=== PATIENT | female | born 1970 | race Caucasian/White ===

== ENCOUNTER 2016-12-07 10:19 | Observation (INO) ==
--- NOTE | 2016-12-07 12:03 | Emergency Department Note ---
START Narrative - START START: I did see the patient spoke with her and examine her. Does have left leg pain and swelling for the last 4 days and Doppler will be done to evaluate further for deep vein thrombosis. Additionally she does have some dyspnea and chest pain and a d-dimer will be done to look for pulmonary embolism as well as chest x-ray. EKG will be done also. I examined this patient and my medical decision-making was reviewed with the WASH PLANT OPERATOR/PA/Advanced Practice Nurse/Resident Physician. I agree with the documented findings, disposition and treatment plan as described except to the extent set forth below. 120
--- NOTE | 2016-12-07 12:37 | Emergency Department Note ---
Disposition Clinical Impression: Pulmonary embolism Qualifiers: Pulmonary embolism type: other Chronicity: acute Acute cor pulmonale presence: without acute cor pulmonale Qualified Code(s): I26.99 - Other pulmonary embolism without acute cor pulmonale Disposition: Admitted As Inpatient Condition: Fair Extremity Problem HPI - General Chief complaint: ED Extremity Problem,Nontraumatic Stated complaint: left leg pain Time Seen by Provider: 12/07/16 11:01 Source: patient Limitations: no limitations - History of Present Illness HPI Narrative: 46 y/o female presents with chief complaint of left lower external pain which started on Sunday. Patient says she was walking and started to get a charley horse on lower left extremity. She has had this checked constantly charley horse in Sunday without improvement. Patient says she has has shortness of breath since last week with chest pain on inspiration. Patient reports she had abdominal pain over the weekend which has now resolved. Denies being on hormonal theraphy, contraception, recent surgery, coagulation disorder, sedentatry lifestyle, recent long travel. D-dimer, lower extremity venous doppler. ROS: Denies fevers chills, blurry vision, abdominal pain, nausea, vomiting, diarrhea or dysuria Admits to pleuritic chest pain, shortness of breath, left lower leg pain Pain Scale: 4 - Related Data Home Medications Medication Instructions Recorded Confirmed Alprazolam [Xanax 0.25 MG Tablet] 0.25 mg PO BID PRN 12/07/16 12/07/16 Cholecalciferol (D-3) [Vitamin D] 2,000 unit PO DAILY 12/07/16 12/07/16 FLUoxetine HCl [PROzac] 10 mg PO DAILY 12/07/16 12/07/16 Allergies Allergy/AdvReac Type Severity Reaction Status Date / Time guaifenesin Allergy See Verified 12/07/16 10:28 Comments hydrocodone Allergy See Verified 12/07/16 10:28 Comments Past Medical History - Past Medical History Medical history: Reports: no medical history Psychiatric history: Reports: anxiety 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: bilateral tubal ligation - Social History Smoking Status: Never smoker Smokeless Tobacco Status: No Alcohol use: Reports: none Drug use: Reports: none Physical Exam - General Limitations: no limitations General appearance: alert, in no apparent distress - Head Head exam: atraumatic, normocephalic - Eye Eye exam: Present: normal appearance, PERRL, EOMI - Chest Chest inspection: Present: normal inspection, symmetric chest wall rise - Respiratory Respiratory exam: Present: normal lung sounds bilaterally, respiratory distress - Cardiovascular Cardiovascular exam: Present: regular rate, normal rhythm - Abdominal Exam Abdominal exam: Present: soft, Non-Tender. Absent: distention - Extremities Exam Extremities exam: Present: full ROM, normal capillary refill (2/4 b/l LE pulses ), other (Left calf tenderness, mild swelling, no redness, ). Absent: pedal edema - Psychiatric Psychiatric exam: Present: normal affect, normal mood - Skin Skin exam: Present: warm, dry, intact Course Course Narrative: D-dimer is elevated at 2200 patient will undergo CTA. - Reevaluation(s) Reevaluation #1: 46 y/ofemale presents with left lower extremity pain. D-dimer is elevated, CTA was done and showed a small right lower lobe pulmonary embolism. Left lower extreme Doppler was negative for DVT. Patient will be admitted to the hospital. This was an unprovoked event. Patient is not on hormonal medications. Time: 13:44 Vital Signs Temperature 97.7 F 12/07/16 10:23 Pulse Rate 87 12/07/16 10:23 Respiratory Rate 16 12/07/16 10:23 Blood Pressure 137/82 12/07/16 10:23 O2 Sat by Pulse Oximetry 98 12/07/16 10:23 Temperature 97.7 F 12/07/16 16:36 Pulse Rate 77 12/07/16 16:36 Respiratory Rate 18 12/07/16 16:36 Blood Pressure 133/80 12/07/16 16:36 O2 Sat by Pulse Oximetry 94 12/07/16 16:36 Oxygen Delivery Oxygen Delivery Room Air Extremity Problem, Nontraumati - MDM Narrative Medical decision making narrative: CTA shows right PE - Medical Records Medical records reviewed: Yes I reviewed the patient's medical records. - Lab Data Lab results reviewed: Yes I reviewed the patient's lab results. Result diagrams: 12/07/16 12:18 12/07/16 12:18 Lab Results 12/07/16 12/07/16 12/07/16 Range/Units 12:18 12:18 12:18 WBC 4.9 (4.3-11.1) K/mcL RBC 4.53 (3.82-4.97) M/mcL Hgb 12.4 (11.5-15.4) g/dL Hct 39.8 (35.3-44.9) % MCV 87.9 (83.0-100.0) fL MCH 27.4 L (28.0-33.3) pg MCHC 31.2 L (31.6-35.5) g/dL RDW 13.2 (11.5-14.5) % Plt Count 219 (140-400) K/mcL MPV 10.5 (9.4-12.4) fL Immature Gran % 0.8 (0-4) % Seg Neutrophils % 60.4 % Lymphocytes % 27.3 % Monocytes % 7.9 % Eosinophils % 3.2 % Basophils % 0.4 % Neutrophils # 3.0 (1.6-8.9) K/mcL Lymphocytes # 1.4 (0.6-4.6) K/mcL Monocytes # 0.4 (0.0-1.3) K/mcL Eosinophils # 0.2 (0.0-0.6) K/mcL Basophils # 0.0 (0.0-0.2) K/mcL PT 12.2 H (9.4-12.1) Seconds INR 1.1 D-Dimer 2079 H (0-500) ng/mLFEU Sodium 137 (136-145) mEq/L Potassium 3.8 (3.5-4.5) mEq/L Chloride 105 (98-109) mEq/L Carbon Dioxide 27 (19-29) mEq/L BUN 12 (7-20) mg/dL Creatinine 0.83 (0.57-1.11) mg/dL Est GFR ( Amer) > 60 (> 60) Est GFR (Non-Af Amer) > 60 (> 60) BUN/Creatinine Ratio 14 (6-26) Glucose 109 H (70-99) mg/dL Calculated Osmolality 284 (280-300) Calcium 9.0 (8.6-10.8) mg/dL - Radiology Data Radiology results reviewed: Yes I reviewed the patient's radiology results.
[2016-12-07 14:12] LABS: Basophils % 0.4 %; Eosinophils # 0.2 K/mcL (0.0-0.6); Eosinophils % 3.2 %; Hematocrit 39.8 % (35.3-44.9); Hemoglobin 12.4 g/dL (11.5-15.4); Immature Granulocytes % 0.8 % (0-4); Lymphocytes # 1.4 K/mcL (0.6-4.6); Lymphocytes % 27.3 %; Mean Corpuscular HGB Conc 31.2 g/dL (31.6-35.5); Mean Corpuscular Hemoglobin 27.4 pg (28.0-33.3); Mean Corpuscular Volume 87.9 fL (83.0-100.0); Mean Platelet Volume 10.5 fL (9.4-12.4); Monocytes # 0.4 K/mcL (0.0-1.3); Monocytes % 7.9 %; Platelet Count 219 K/mcL (140-400); Red Blood Count 4.53 M/mcL (3.82-4.97); Red Cell Distribution Width 13.2 % (11.5-14.5); Segmented Neutrophils % 60.4 %
[2016-12-07 14:18] LABS: INR 1.1; Prothrombin Time 12.2 Seconds (9.4-12.1)
[2016-12-07 14:19] LABS: BUN/Creatinine Ratio 14 (6-26); Blood Urea Nitrogen 12 mg/dL (7-20); Carbon Dioxide 27 mEq/L (19-29); Chloride 105 mEq/L (98-109); Glucose 109 mg/dL (70-99); Osmolality,Calculated 284 (280-300); Potassium 3.8 mEq/L (3.5-4.5); Sodium 137 mEq/L (136-145); eGFR For African Americans > 60 (> 60); eGFR For Non-African Americans > 60 (> 60)
[2016-12-07] MEDS ORDERED: Naloxone 0.4 MG/ML INJ IVP PRN (14:51)
--- NOTE | 2016-12-07 15:09 | Internal Med History&Physical ---
Date of Encounter: 12/07/16 Time of Encounter: 15:05 Assessment and Plan (1) Pulmonary embolism Current visit: Yes Status: Acute 1 patient has been experiencing left lower leg pain as well as increasing shortness breath chest pain. CTA did not reveal small pulmonary embolism right lung. Patient will be anticoagulated- lovenox 2 continuous cardiac monitoring 3 we will obtain coagulopathy panel Qualifiers: Pulmonary embolism type: other Chronicity: acute Acute cor pulmonale presence: without acute cor pulmonale Qualified Code(s): I26.99 - Other pulmonary embolism without acute cor pulmonale (2) Anxiety Current visit: Yes Status: Acute 1 patient has history of anxiety continue with home medications Internal Medicine - H&P: HPI Chief complaint: leg pain SOB Admitted From: Emergency Dept Plans for Post Hospital Care: Home History of present illness: Ms. Corona is a 46 year old female past history of anxiety. According to patient she been experiencing left lower leg pain which she described as charley horse which started on Sunday she also has been experiencing shortness of breath on exertion for approximately one week. She also has been experiencing left sided chest pain radiates to her shoulder rated with ambulation relieved with rest. Patient denies any injury to leg a recent long travel she is nonsmoker she is not on any hormone replacement or personal or family history of coagulopathy. Last menstrual period was 3 weeks ago patient has history of tubal ligation. She presented to the ER with above complaints. Lab work ER revealed d-dimer of 2079 CTA of chest did reveal small pulmonary embolism in right chest. Patient's admit for further workup and evaluation. Presently patient denies any chest pain or shortness of breath she does complain of left lower leg cramping. Left leg with positive Homans sign and there are no palpable cords. Denies any palpitations She is hemodynamically stable at this time does not appear to be any rest for distress. I reviewed this case with Dr. Noland who agrees with plan Past Med Surg Social Fam HX - Past Medical History Medical history: no medical history Psychiatric history: anxiety - Social History Smoking Status: Never smoker Smokeless Tobacco Status: No Alcohol use: none Drug use: none - Family History Mother Living Status: Still Living Hx Family Cardiac Disorders: Yes (VA hypertension) Hx Family Neurologic Disorders: Yes (CVA) Father Living Status: Still Living Hx Family Neurologic Disorders: Yes (CVA) Internal Medicine - H&P: Meds Alprazolam [Xanax 0.25 MG Tablet] 0.25 mg PO BID PRN 12/07/16 [History] Cholecalciferol (D-3) [Vitamin D] 2,000 unit PO DAILY 12/07/16 [History] FLUoxetine HCl [PROzac] 10 mg PO DAILY 12/07/16 [History] Allergies guaifenesin Allergy (Verified 12/07/16 10:28) See Comments hydrocodone Allergy (Verified 12/07/16 10:28) See Comments All Systems PM: A 10-system review of systems was performed and is negative for pertinent findings except as documented above in the HPI. - Constitutional Constitutional: no chills, no fever(s), no night sweats - EENT Eyes: no change in vision, no discharge, no pain, no photophobia - Cardiovascular Cardiovascular ROS IM: chest pain, dyspnea on exertion - Respiratory Respiratory: dyspnea on exertion - Gastrointestinal Gastrointestinal: no abdominal pain, no diarrhea, no hematemesis, no hematochezia, no melena, no nausea, no vomiting - Genitourinary Genitourinary: no change in urinary stream, no dysuria, no flank pain, no hematuria - Musculoskeletal Musculoskeletal ROS IM: muscle cramps Additional comments: Left lower leg cramping - Neurological Neurological ROS: no confusion, no convulsions, no focal weakness, no numbness, no tingling, no tremor(s) - Constitutional Vitals: Temp Pulse Resp BP Pulse Ox 97.7 F 76 16 143/97 99 12/07/16 10:23 12/07/16 14:38 12/07/16 14:38 12/07/16 14:38 12/07/16 14:38 General appearance: Present: A&O X 3, answers questions appropriately - Head Head exam: Present: atraumatic, normocephalic - Eye Eye exam: Present: PERRL, conjuntiva pink, sclera anicteric Pupils: Present: PERRL - Neck Neck exam general surgery: Present: supple, trachea midline. Absent: lymphadenopathy - Respiratory Respiratory exam: Present: CTAB. Absent: accessory muscle use, rales, rhonchi, wheezes - Cardiovascular Cardiovascular exam: Present: RRR, +S1, +S2. Absent: diastolic murmur, gallop, rubs, systolic murmur - GI/Abdominal GI/Abdominal exam: Present: normal bowel sounds, soft, no peritoneal signs. Absent: distended, tenderness - Extremities Exam Extremities exam: Present: tenderness, warm, radial pulses palpable and symetrical. Absent: calf tenderness, cyanotic, pedal edema Additional comments: Left leg - Neurological Exam Neurological exam: Present: CN II-XII intact, oriented X3, no focal deficits. Absent: pronater drift, facial droop, speech deficit Internal Med - H&P Results - Labs CBC & Chem 7: 12/07/16 12:18 12/07/16 12:18 - EKG Data EKG shows normal: sinus rhythm Rate: normal - EKG Data Prior EKG available for review: no - Diagnostic Studies Other Images Additional comments: Chest CTA 12/07/16 12:35 IMPRESSION: Small right lower lobe pulmonary embolism. No acute abnormality of the chest otherwise. Critical results were called by Dr. Prashanth Day MD to Dr. Sidhu on 12/07/2016 at 13:27. D/ / Prashanth Day MD / Prashanth Day MD Interpreting Provider: Prashanth Day MD
[2016-12-07] MEDS: *HR* Enoxaparin 100 MG/ML SYRINGE SQ SCH ×2 (16:44→18:01)
--- NOTE | 2016-12-07 17:28 | Event Note ---
Date of Encounter: 12/07/16 Time of Encounter: 17:20 Patient seen and examined withpetitioner. Main complain maya left cough pain. The dimer performed in the emergency room and was elevated CT angiogram was performed after she described at typical chest pain. It showed a small right sub segmental pulmonary embolism. No clear provoking factor. Hyper coagulable workup ordered. She had a mammogram and Pap smear within the past year that were unremarkable. Therapeutic Lovenox. I am not sure of this small PE would explain her symptoms of shortness of breath and chest pain. Observation admission. full code
[2016-12-07] MEDS ORDERED: traMADol 50 MG TABLET PO ONE (21:57)
[2016-12-08 00:17] LABS: Basophils % 0.5 %; Eosinophils # 0.3 K/mcL (0.0-0.6); Eosinophils % 4.4 %; Hematocrit 37.9 % (35.3-44.9); Hemoglobin 12.2 g/dL (11.5-15.4); Immature Granulocytes % 0.6 % (0-4); Lymphocytes # 2.2 K/mcL (0.6-4.6); Lymphocytes % 36.2 %; Mean Corpuscular HGB Conc 32.2 g/dL (31.6-35.5); Mean Corpuscular Hemoglobin 28.2 pg (28.0-33.3); Mean Corpuscular Volume 87.7 fL (83.0-100.0); Mean Platelet Volume 10.3 fL (9.4-12.4); Monocytes # 0.6 K/mcL (0.0-1.3); Monocytes % 9.4 %; Platelet Count 196 K/mcL (140-400); Red Blood Count 4.32 M/mcL (3.82-4.97); Red Cell Distribution Width 13.2 % (11.5-14.5); Segmented Neutrophils % 48.9 %
[2016-12-08 00:23] LABS: BUN/Creatinine Ratio 13 (6-26); Blood Urea Nitrogen 12 mg/dL (7-20); Calcium 8.7 mg/dL (8.6-10.8); Carbon Dioxide 23 mEq/L (19-29); Chloride 107 mEq/L (98-109); Glucose 110 mg/dL (70-99); Osmolality,Calculated 286 (280-300); Potassium 3.9 mEq/L (3.5-4.5); Sodium 138 mEq/L (136-145); eGFR For African Americans > 60 (> 60); eGFR For Non-African Americans > 60 (> 60)
[2016-12-08] MEDS: *HR* Enoxaparin 100 MG/ML SYRINGE SQ SCH ×2 (05:27→19:33)
[2016-12-08 07:36] LABS: Factor V Leiden HETEROZYGOUS (Normal); Prothrombin G20210A Mutation HETEROZYGOUS (Normal)
--- NOTE | 2016-12-08 09:46 | Internal Med Progress Note ---
<WliverYamila Heather Graciela - Last Filed: 12/08/16 12:32> Date of Encounter: 12/08/16 Time of Encounter: 09:15 - Assessment and plan (1) Pulmonary embolism Current Visit: Yes Status: Acute Assessment and plan: CTA demonstrated small right lower lobe pulmonary embolism. No acute abnormality of the chest otherwise. Lovenox 90mg SQ q12 Patient complaining of Left lower leg pain Venous doppler of left leg, pending ECHO, pending to evaluate for presence of thrombus or presence of right heart strain Negative BNP and Troponins Patient clinically stable, composite model low risk for complications If ECHO is normal, will send home on XMS Penvision Patient is heterozygous for Factor V Leiden Antithromin III, Protein C, Protein S, Lupus anticoagulant, Cardiolipin Ab are pending Qualifiers: Pulmonary embolism type: other Chronicity: acute Acute cor pulmonale presence: without acute cor pulmonale Qualified Code(s): I26.99 - Other pulmonary embolism without acute cor pulmonale (2) Heterozygous factor V Leiden mutation Current Visit: Yes Status: Acute (3) JOSEPH (obstructive sleep apnea) Current Visit: Yes Status: Acute Assessment and plan: Will qualify patient for CPAP/BIPAP BIPAP/CPAP ordered for tonight I contacted the person coordinating the patient's outpatient sleep study to determine when that study will be completed (4) Anxiety Current Visit: Yes Status: Acute Assessment and plan: Fluoxetine (5) Headache Current Visit: Yes Status: Acute Assessment and plan: Tylenol ordered prn Qualifiers: Headache type: tension-type Headache chronicity pattern: unspecified pattern Intractability: not intractable Qualified Code(s): G44.209 - Tension -type headache, unspecified, not intractable (6) Hypovitaminosis D Current Visit: Yes Status: Acute Assessment and plan: Continue home dose Vitamin D (7) Obesity (BMI 30.0-34.9) Current Visit: Yes Status: Acute Assessment and plan: weight loss discussed - Time Spent With Patient 25 - 35 minutes (30 minutes including time with patient and coordinating care) - Subjective Interval history: Patient complains of dyspnea that has been present x 1 month. Patient states that she has a long history of anxiety with episodic chest pain and dyspnea, the dyspnea she has been experiencing for the last month is different from her baseline. Patient complains of left leg pain today that has been present for approximately one week. She states pain is non-existent at rest, but worsened with sitting or walking. Also worsened when her left leg is dangling. Leg is tender at location of calf muscle. Patient also complains of right chest pain isolated to upper sternal border. She admits to episodes of fluttering of heart. She states these episodes are worsened with drinking caffeine. Patient states that she believes she has previously worn a holter monitor. Patient is still having menstrual periods. She does not smoke. She does not take control. Patient was recently prescribed Fluoxetine 10mg for anxiety. Patient complains of headache this morning. Patient states that she is concerned that she has sleep apnea. She states that she has episodes of apnea that wake her from sleep. Admits snoring. Review Dr. Fay's notes in [facility] reveals that patient wore a nocturnal pulse Ox with evidence of nocturnal hypoxemia. A sleep study request has been sent to [facility]. - Constitutional Vitals: Temp Pulse Resp BP Pulse Ox 97.6 F 81 15 109/71 99 12/08/16 07:31 12/08/16 07:31 12/08/16 04:35 12/08/16 07:31 12/08/16 07:31 General appearance: Present: A&O X 3, pleasant, no acute distress, obese, answers questions appropriately - Head Head exam: Present: atraumatic, normocephalic - Eye Eye exam: Present: EOMI, PERRL, sclera anicteric. Absent: periorbital swelling - Neck Neck exam general surgery: Present: full ROM, supple, trachea midline - Respiratory Respiratory exam: Present: CTAB. Absent: accessory muscle use, rales, rhonchi, wheezes - Cardiovascular Cardiovascular exam: Present: RRR, +S1, +S2. Absent: diastolic murmur, gallop, rubs, systolic murmur - GI/Abdominal GI/Abdominal exam: Present: normal bowel sounds, soft, no peritoneal signs. Absent: distended, tenderness - Extremities Exam Extremities exam: Present: normal inspection, tenderness, warm, radial pulses palpable and symetrical. Absent: calf tenderness, cyanotic, pedal edema Additional comments: Left leg: TTP of gastrocnemius, gastrocnemius with hypertonicity, no joint line tenderness present, negative anterior/posterior drawer tests Right leg: no tenderness, no hypertonicity appreciated - Neurological Exam Neurological exam: Present: CN II-XII intact, oriented X3, no focal deficits. Absent: pronater drift, facial droop, speech deficit - Skin Skin exam: Present: dry, intact Internal Medicine: Result - Labs CBC & Chem 7: 12/08/16 00:05 12/08/16 00:05 Labs: Short CBC 12/08/16 Range/Units 00:05 WBC 6.2 (4.3-11.1) K/mcL Hgb 12.2 (11.5-15.4) g/dL Hct 37.9 (35.3-44.9) % Plt Count 196 (140-400) K/mcL Neutrophils # 3.0 (1.6-8.9) K/mcL BMP 12/08/16 00:05 Sodium 138 Potassium 3.9 Chloride 107 Carbon Dioxide 23 BUN 12 Creatinine 0.91 Glucose 110 H Calcium 8.7 Cardiac Enzymes 12/07/16 12/08/16 Range/Units 17:38 00:05 Troponin I 0.00 0.00 (0-0.03) ng/mL - ABG Interpretation ABG results: PT/INR, D-dimer PT 12.2 Seconds (9.4-12.1) H 12/07/16 12:18 D-Dimer 2079 ng/mLFEU (0-500) H 12/07/16 12:18 - Impressions Chest CTA 12/07/16 12:35 IMPRESSION: Small right lower lobe pulmonary embolism. No acute abnormality of the chest otherwise. Critical results were called by Dr. Prashanth Day MD to Dr. Sidhu on 12/07/2016 at 13:27. D/ / Prashanth Day MD / Prashanth Day MD Interpreting Provider: Prashanth Day MD Consult Discharge Plan - Plan Referrals: Nico Fay MD [Primary Care Provider] - <Freda Stokes E - Last Filed: 12/08/16 16:52> Date of Encounter: 12/08/16 - Constitutional Vitals: Temp Pulse Resp BP Pulse Ox 97.9 F 80 18 126/80 96 12/08/16 15:00 12/08/16 15:00 12/08/16 15:00 12/08/16 15:00 12/08/16 15:00 Internal Medicine: Result - Labs CBC & Chem 7: 12/08/16 00:05 12/08/16 00:05 Labs: Short CBC 12/08/16 Range/Units 00:05 WBC 6.2 (4.3-11.1) K/mcL Hgb 12.2 (11.5-15.4) g/dL Hct 37.9 (35.3-44.9) % Plt Count 196 (140-400) K/mcL Neutrophils # 3.0 (1.6-8.9) K/mcL BMP 12/08/16 00:05 Sodium 138 Potassium 3.9 Chloride 107 Carbon Dioxide 23 BUN 12 Creatinine 0.91 Glucose 110 H Calcium 8.7 Cardiac Enzymes 12/07/16 12/08/16 Range/Units 17:38 00:05 Troponin I 0.00 0.00 (0-0.03) ng/mL - ABG Interpretation ABG results: PT/INR, D-dimer PT 12.2 Seconds (9.4-12.1) H 12/07/16 12:18 D-Dimer 2079 ng/mLFEU (0-500) H 12/07/16 12:18 - Attending Attestation I examined this patient and reviewed laboratory, imaging and all diagnostic data. My medical decision-making was reviewed with Dr Pettit - Resident Physician. I agree with the documented findings, disposition and treatment plan as described above
[2016-12-08] MEDS ORDERED: Acetaminophen 325 MG TABLET PO PRN (09:51)
[2016-12-08] MEDS: Cholecalciferol (D-3) 1,000 UNIT TABLET PO SCH (11:51)
[2016-12-08] MEDS: FLUoxetine HCl 10 MG CAPSULE PO SCH (11:51)
[2016-12-08] MEDS: Ibuprofen 400 MG TABLET PO PRN (16:00)
--- NOTE | 2016-12-08 20:17 | Venous Imaging Report ---
LE Venous Duplex Patient Name:Anaid Corona Order Number:[id number] Procedure Date:12/07/2016 Date:1970Age:46 yrs Gender:Female Location:[facility] ED Room #: Table Assembler Metal:Dian Davila RVT Referring MD:Cy Melchor DO conveyor attendant:Nico Fay MD Reading MD:Nico Jama MD Primary Indications:LLE pain Secondary Indications: Impressions: Left lower extremity: normal superficial and deep exam. Recommendations: Results to Dr Sidhu on 12/07/16 @ 1330. Test completed on 12/07/2016 at 1:25:00 pm. Findings Venous Duplex Results: Right: Venous imaging of the lower extremity reveals full patency and normal vessel compressibility of the right common femoral. Doppler signals in the evaluated veins were normal. Left: Venous imaging of the lower extremity reveals full patency and normal vessel compressibility of the left distal iliac, left common femoral, left superficial femoral, left popliteal, left posterior tibial, left peroneal, left great saphenous and left lesser saphenous. Doppler signals in the evaluated veins were normal. Prior Study: No prior study available for comparison. Lower Extremity Venous Duplex Side Vein Compress Spontaneous Flow Augment Diameter (cm) Depth (cm) Left Distal Iliac Normal Yes Phasic Yes Left Common Femoral Normal Yes Phasic Yes Left Superficial Femoral Normal Yes Phasic Yes Left Popliteal Normal Yes Phasic Yes Left Posterior Tibial Normal Yes Phasic Yes Left Peroneal Normal Yes Phasic Yes Left Great Saphenous Normal Yes Phasic Yes Left Lesser Saphenous Normal Yes Phasic Yes Right Common Femoral Normal Yes Phasic Yes Updated by Nico Jama MD on 12/08/2016 8:11:20 PM electronically signed on 12/08/2016 8:11:34 PM with status of Final
[2016-12-09] MEDS: Ibuprofen 400 MG TABLET PO PRN (00:16)
[2016-12-09] MEDS: *HR* Enoxaparin 100 MG/ML SYRINGE SQ SCH (05:27)
[2016-12-09 07:50] VITALS: BP 112/75
[2016-12-09] MEDS: FLUoxetine HCl 10 MG CAPSULE PO SCH (08:19)
[2016-12-09] MEDS: Cholecalciferol (D-3) 1,000 UNIT TABLET PO SCH (08:19)
--- NOTE | 2016-12-09 09:27 | Discharge Summary ---
<Yamila Pettit Graciela - Last Filed: 12/09/16 13:26> Date of Encounter: 12/09/16 Time of Encounter: 08:45 - Discharge Diagnosis (1) Pulmonary embolism Priority: Primary Status: Acute Qualifiers: Pulmonary embolism type: other Chronicity: acute Acute cor pulmonale presence: without acute cor pulmonale Qualified Code(s): I26.99 - Other pulmonary embolism without acute cor pulmonale (2) Heterozygous factor V Leiden mutation Priority: Secondary Status: Acute (3) JOSEPH (obstructive sleep apnea) Priority: Secondary Status: Chronic (4) Anxiety Priority: Secondary Status: Chronic (5) Headache Priority: Secondary Status: Acute Qualifiers: Headache type: tension-type Headache chronicity pattern: unspecified pattern Intractability: not intractable Qualified Code(s): G44.209 - Tension -type headache, unspecified, not intractable (6) Hypovitaminosis D Priority: Secondary Status: Chronic (7) Obesity (BMI 30.0-34.9) Priority: Secondary Status: Chronic (8) DVT prophylaxis Priority: Secondary Status: Acute - Discharge Medications Prescriptions: Rivaroxaban [Xarelto] 15 mg PO BID 21 Days Rivaroxaban [Xarelto] 20 mg PO DAILY 30 Days Home Medications: Alprazolam [Xanax 0.25 MG Tablet] 0.25 mg PO BID PRN 12/07/16 [History] Cholecalciferol (D-3) [Vitamin D] 2,000 unit PO DAILY 12/07/16 [History] FLUoxetine HCl [Prozac] 10 mg PO DAILY 12/07/16 [History] Rivaroxaban [Xarelto] 15 mg PO BID 21 Days 12/09/16 [Rx] Rivaroxaban [Xarelto] 20 mg PO DAILY 30 Days 12/09/16 [Rx] Allergies/Adverse Reactions: Allergies guaifenesin Allergy (Verified 12/07/16 10:28) See Comments hydrocodone Allergy (Verified 12/07/16 10:28) See Comments Procedures/tests Complete & Pending: Procedures Performed prior 72 hours Category Date Time Status EV echocardiogram Routine Y 12/08/16 09:15 Completed Date of admission: 12/07/16 14:33 Primary care physician: Nico Fay MD Discharging clinician: Freda Stokes Anticipated date of discharge: 12/09/16 - Patient Status Disposition: Home, Self-Care Condition: Good Functional capacity at discharge: independent ambulation Overall status at discharge: patient is back to baseline - Discharge Instructions Follow Up With: Nico Fay MD [Primary Care Provider] - 12/18/16 3:00 pm Forms: Work/School Release Additional Instructions: Follow up with your doctor next week for blood clots in lungs, weight loss program, sleep study Please return to nearest ER if you have any signs of bleeding - Diet and Activity Activity: resume usual activities as tolerated Diet: low fat, low cholesterol Hospital course: Ms. Corona is a 46 year old female who presented to hospital on 12/08/16 with complaints of dyspnea that has been present x 1 month. CTA demonstrated small right lower lobe pulmonary embolism. Patient was started on Lovenox 90mg SQ q12. During her hospital stay, patient was found to be heterozygous for Factor V Leiden. Antithromin III, Protein C, Protein S, Lupus anticoagulant, Cardiolipin Ab are pending and will be available on SpareTime when resulted. Patient is still having menstrual periods and is s/p tubal ligation. She does not smoke. She does not take control. She denied family history of coagulation problems upon presentation to the hospital. She is currently in stable condition and will be discharged to home with Delmy. She will follow up with her PCP on 12/18/16. - Time Spent with Patient Total time spent providing and/or coordinating discharge services: Greater than 30 minutes (35 minutes including time with patient and coordinating care) - Constitutional Vitals: Temp Pulse Resp BP Pulse Ox 97.7 F 79 18 112/75 98 12/09/16 07:41 12/09/16 07:41 12/09/16 07:41 12/09/16 07:41 12/09/16 07:41 General appearance: Present: A&O X 3, pleasant, no acute distress, obese, answers questions appropriately - Head Head exam: Present: atraumatic, normocephalic - Eye Eye exam: Present: EOMI, sclera anicteric - Neck Neck exam general surgery: Present: full ROM, supple, trachea midline - Respiratory Respiratory exam: Present: CTAB. Absent: accessory muscle use, rales, rhonchi, wheezes - Cardiovascular Cardiovascular exam: Present: RRR, +S1, +S2. Absent: diastolic murmur, gallop, rubs, systolic murmur - GI/Abdominal GI/Abdominal exam: Present: normal bowel sounds, soft, no peritoneal signs. Absent: distended, tenderness - Extremities Exam Extremities exam: Present: warm, radial pulses palpable and symetrical. Absent : cyanotic, pedal edema - Neurological Exam Neurological exam: Present: CN II-XII intact, oriented X3, no focal deficits. Absent: facial droop, speech deficit - Skin Skin exam: Present: dry, intact <Freda Stokes - Last Filed: 12/09/16 17:26> Date of Encounter: 12/09/16 Procedures/tests Complete & Pending: Procedures Performed prior 72 hours Category Date Time Status EV echocardiogram Routine Y 12/08/16 09:15 Completed Date of admission: 12/07/16 14:33 Primary care physician: Nico Fay MD Hospital course: Ms. Corona is a 46 year old female - Time Spent with Patient Total time spent providing and/or coordinating discharge services: - Constitutional Vitals: Temp Pulse Resp BP Pulse Ox 97.7 F 79 18 112/75 98 12/09/16 07:41 12/09/16 07:41 12/09/16 07:41 12/09/16 07:41 12/09/16 07:41 - Attending Attestation I examined this patient and reviewed laboratory, imaging and all diagnostic data. My medical decision-making was reviewed with Dr Pettit - Resident Physician. I agree with the documented findings, disposition and treatment plan as described above
--- NOTE | 2016-12-09 09:38 | ECHO - Doppler Report ---
Echocardiogram Name: Anaid Corona Date of Study: 12/08/2016 Date: 1970 Ht: 64.0 in Medical Record#: [id number] Age: 46 Wt: 200.0 lb Gender: Female BSA: 1.96 Order #: [id number] Location: [facility] Room #: 3A21 Reading Physician: Kenny Day MD, [facility] Distributor Advertising Material: Geri Vasquez Ordering Physician: Freda Stokes MD Primary Physician: Nico Fay MD Indications: Acute PE Impressions: Normal right ventricular structure and function. LVEF 60-65%. Normal left ventricular diastolic function. No significant valvular dysfunction. Left Ventricular Wall Motion: Rest Echo Findings All wall segments showed normal motion. Findings: Study Quality * Technically adequate exam. Right Ventricle * Normal right ventricular structure and function. Left Atrium * Normal left atrial size. Mitral Valve * Normal mitral valve structure and function. Aorta * Normally sized aortic root. Pericardium * The pericardium appears normal. Left Ventricle * LVEF 60-65%. * Normal LV chamber size, wall thickness and function. * Normal left ventricular diastolic function. * No segmental dysfunction. Tricuspid Valve * No tricuspid stenosis. * No tricuspid regurgitation. * Unable to estimate RVSP due to lack of TR jet. Pulmonic Valve * No pulmonic stenosis. * No pulmonic regurgitation. * Pulmonic valve is not well visualized. Aortic Valve * No aortic regurgitation. * No aortic stenosis. * Aortic valve not well visualized. IVC * The IVC is not well evaluated. Interatrial Septum * Interatrial septum not well evaluated. Right Atrium * Right atrium is not well visualized. ECG Findings * Sinus bradycardia. History Family History of CAD Measurements: BP: 126/ 80 2D Normal Values RVIDd: 3.50 cm <2.7 cm IVSd: .80 cm 0.6 - 1.0 cm LVIDd: 4.70 cm 3.7 - 5.6 cm LVPWd: .70 cm 0.6 - 1.1 cm LVIDs: 2.60 cm 1.5 - 3.6 cm AO: 2.00 cm < 4.0 cm LA: 3.30 cm 2.0 - 4.0cm %FS: 44.70 cm >25 % LA volume: 41 Mitral Valve Peak E:.85 m/sec Peak A:.45 m/sec E/A Ratio:1.9 Peak E' Lat Ian:13.3 cm/s Peak E' Med Ian:8.38 cm/s E/E' Lat Ratio:6.4 E/E' Med Ratio:10.1 Updated by Kenny Day MD, [facility] on 12/09/2016 9:34:47 AM electronically signed on 12/09/2016 9:35:02 AM with status of Final Wall Motion Mallory: 1=Normal, 2=Hypokinesis, 3=Akinesis, 4=Dyskinesis, 5=Aneurysmal, 6=Hyperkinetic, X=Not Visualized (Blank)=Missing
[2016-12-09 16:16] LABS: APTT (LE Anticoag) 40 sec (32-48); Diluted Russell Viper Venom 35 sec (33-44); PT (LE-Anticoag) 12.8 sec (12.0-15.5)
[2016-12-11 14:41] LABS: Protein S Antigen, Total 117 % (63-126)
--- NOTE | 2016-12-11 18:33 | Electrocardiograph Report ---
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
== END 2016-12-09 11:05 | disposition home or self-care (01) ==
LOC: 3ANU 10:19 → EMEROO 10:19 → 3ANU 15:57
PROVIDERS: ADMIT Hospitalist; ATTEND Internal Medicine

== ENCOUNTER 2021-05-29 10:59 | Observation (INO) ==
[2021-05-29] MEDS ORDERED: 0.9 % Sodium Chloride 1,000 ML IVC ONE (11:26)
[2021-05-29 11:45] LABS: Basophils % 0.4 %; Eosinophils # 0.1 K/mcL (0.0-0.6); Eosinophils % 2.2 %; Hematocrit 42.9 % (35.3-44.9); Hemoglobin 13.5 g/dL (11.5-15.4); Immature Granulocytes % 0.8 % (0-4); Lymphocytes # 1.3 K/mcL (0.6-4.6); Lymphocytes % 27.4 %; Mean Corpuscular HGB Conc 31.5 g/dL (31.6-35.5); Mean Corpuscular Hemoglobin 28.6 pg (28.0-33.3); Mean Corpuscular Volume 90.9 fL (83.0-100.0); Mean Platelet Volume 10.3 fL (9.4-12.4); Monocytes # 0.3 K/mcL (0.0-1.3); Monocytes % 5.9 %; Neutrophils # 3.1 K/mcL (1.6-8.9); Platelet Count 204 K/mcL (140-400); Red Blood Count 4.72 M/mcL (3.82-4.97); Red Cell Distribution Width 12.7 % (11.5-14.5); Segmented Neutrophils % 63.3 %; White Blood Count 4.9 K/mcL (4.3-11.1)
[2021-05-29 12:07] LABS: BUN/Creatinine Ratio 16 (6-26); Blood Urea Nitrogen 13 mg/dL (6-20); Calcium 9.2 mg/dL (8.6-10.3); Carbon Dioxide 27 mEq/L (23-29); Chloride 104 mEq/L (98-107); Glucose 115 mg/dL (70-105); Osmolality,Calculated 287 (280-300); Potassium 3.7 mEq/L (3.5-5.1); Sodium 138 mEq/L (136-145); Troponin I < 0.03 ng/mL (< 0.04); eGFR For African Americans > 60 (> 60); eGFR For Non-African Americans > 60 (> 60)
[2021-05-29 12:34] LABS: Bilirubin,Urine Negative (Negative); Blood,Urine Negative (Negative); Clarity,Urine Clear (Clear); Color,Urine Light-Yellow (Yellow); Glucose,Urine (UA) Normal (Normal); Ketones,Urine Negative (Negative); Leukocyte Esterase,Urine Negative (Negative); Nitrite,Urine Negative (Negative); Protein,Urine Trace mg/dL (Neg-Trace); Specific Gravity,Urine 1.022 (1.010-1.025); Urobilinogen,Urine Normal (Normal)
[2021-05-29] MEDS ORDERED: Ondansetron 4 MG/2 ML VIAL IVP PRN (15:28)
[2021-05-29] MEDS ORDERED: Naloxone 0.4 MG/ML INJ IVP PRN (15:28)
[2021-05-29] MEDS ORDERED: *HR* Rivaroxaban 15 MG TABLET PO ONE ×2 (16:08→18:30)
[2021-05-30 01:15] LABS: Basophils % 0.5 %; Eosinophils # 0.1 K/mcL (0.0-0.6); Eosinophils % 1.8 %; Hematocrit 39.8 % (35.3-44.9); Hemoglobin 12.6 g/dL (11.5-15.4); Immature Granulocytes % 0.5 % (0-4); Lymphocytes # 1.9 K/mcL (0.6-4.6); Mean Corpuscular HGB Conc 31.7 g/dL (31.6-35.5); Mean Corpuscular Hemoglobin 28.8 pg (28.0-33.3); Mean Corpuscular Volume 90.9 fL (83.0-100.0); Mean Platelet Volume 10.3 fL (9.4-12.4); Monocytes # 0.5 K/mcL (0.0-1.3); Monocytes % 7.9 %; Neutrophils # 3.6 K/mcL (1.6-8.9); Platelet Count 218 K/mcL (140-400); Red Blood Count 4.38 M/mcL (3.82-4.97); Segmented Neutrophils % 58.3 %; White Blood Count 6.2 K/mcL (4.3-11.1)
[2021-05-30 01:33] LABS: BUN/Creatinine Ratio 19 (6-26); Blood Urea Nitrogen 17 mg/dL (6-20); Calcium 8.9 mg/dL (8.6-10.3); Carbon Dioxide 26 mEq/L (23-29); Chloride 107 mEq/L (98-107); Glucose 114 mg/dL (70-105); Magnesium 1.8 mg/dL (1.6-2.6); Osmolality,Calculated 290 (280-300); Phosphorous 3.5 mg/dL (2.7-4.5); Potassium 3.7 mEq/L (3.5-5.1); Sodium 139 mEq/L (136-145); eGFR For African Americans > 60 (> 60); eGFR For Non-African Americans > 60 (> 60)
[2021-05-30 01:58] LABS: Folate 14.6 ng/mL (3.0-16.0)
[2021-05-30] MEDS ORDERED: *HR* Rivaroxaban 15 MG TABLET PO SCH (09:00)
[2021-05-30 10:50] VITALS: BP 126/83; PULSE 69; TEMP 98; O2SAT 97
== END 2021-05-30 14:50 | disposition home or self-care (01) ==
LOC: EMEROOARM 10:59 → 3BNU 10:59 → SUATTDRO 16:01 → 3BNU 17:00
PROVIDERS: ADMIT Family Medicine; ATTEND Internal Medicine